=== PATIENT | female | born 1965 | race Asian ===

== ENCOUNTER → 2023-08-03 19:04 | Outpatient (REF) | payer OTHER, SELFPAY | LOC: WDC 19:04 | PROVIDERS: ATTENDING PHYSICIAN Family Medicine | DX: Z12.31 Encounter for screening mammogram for malignant neoplasm of breast (principal) | CPT/HCPCS: 77063; 77067 ==

== ENCOUNTER 2023-09-02 21:13 | Emergency (ER) | payer OTHER, SELFPAY ==
[2023-09-02] VITALS (14 sets, daily range): BP systolic 121–141; BP diastolic 73–87; BMI 26.0
[2023-09-02 21:21] LABS: Glucose - Point of Care 104 mg/dl (70-99)
--- NOTE | 2023-09-02 21:28 | ED.CVA ---
History of Present Illness
General
Chief Complaint: CVA/TIA Symptoms
Source: patient and spouse
Exam Limitations: none
Time Seen by Provider: 09/02/23 21:22
Nursing documentation reviewed up to this point in time: agreed with
Onset of Stroke Symptoms
Onset of symptoms known: Yes
Date of onset of symptoms: 09/02/23
Time of onset of symptoms: 21:00
Travel History
Have you had any contact with someone who has COVID-19?: No
Do you have any symptoms of coronavirus? Fever > 100 degrees, chills, cough, shortness of breath, sore throat, loss of taste or smell, muscle aches, or headache?: No
History of Present Illness
History of Present Illness:
Patient without any significant past medical history, presents to ED secondary to sudden onset of mental status change along with right-sided weakness, approximate 20 minutes prior to arrival. Per spouse, while he was upstairs, he heard a 'thump'
downstairs. When he went downstairs, patient was lying on the ground unable to speak. Patient appeared to not be able to move right side of her body. Upon arrival to ED, patient is awake, but not following commands. Unable to obtain any further
information. Stroke alert activated.
Review of Systems
Review of Systems
Allergies reviewed?: Yes
Unable to obtain full review of systems at this time due to: due to acuity
All Other Systems: Not applicable
Phy Exam
Physical Exam
Physical Exam:
Physical Exam
General: no apparent distress, not acutely ill
Neck: supple. no meningeal signs. normal psoterior pharynx
Heart: s1/s2 regular rate and rhythm, no murmur. equal radial pulses.
Lungs: no acute respiratory distress. clear bilaterally
Abdomen: normal bowel sounds. not tender. no CVAT
Neuro: awake but not following commands. left preferential gaze noted
Skin: no rash
Psychiatric: well kept. interactive and cooperative
Extremities: no edema.
Scores
NIH Stroke Score
Level of Consciousness: 0 - Alert
LOC Questions: 2-Neither correct
LOC Commands: 2-Performs neither correctly
Best Horizontal Gaze: 1-Partial gaze palsy
Visual Mcpherson: 0=Normal, no visual loss
Facial Palsy: 0=Normal, symmetrical
Motor - Right Arm: 4=No movement
Motor - Left Arm: 0=No drift 10 seconds
Motor - Right Le-No movement
Motor - Left Le-No drift 5 seconds
Limb Ataxia: 0-Absent
Sensation: 0-Normal
Best Language: 3-Mute/global aphasia
Dysarthria: UN-Intubated, other
Extinction and Inattention: 0-No abnormality
Total Score:: 16
Course
Orders/Labs/Results
Orders:
Orders
09/02/23 21:21
CT Head W/o Cont STROKE ALERT Urgent
Reason For Exam: aphasia w right sided weakness
CT Head/Neck Ang STROKE ALERT Urgent
Reason For Exam: aphasia w right sided weakness
09/02/23 21:23
Electrocardiogram (*1) Urgent
Reason for Study: TIA/Stroke
EKG- Treatment ONCE
09/02/23 21:28
Complete Blood Count/With Diff Urgent
Comprehensive Metabolic Panel Urgent
Magnesium Urgent
PT/INR [Prothrombin Time] Urgent
PTT Urgent
Troponin I Urgent
09/02/23 21:36
Tenecteplase [Tnkase] 15 mg Syringe [Syringe Non-Pump] 0 ml IV NOW
Abnormal Lab Results
09/02/23 09/02/23
21:19 21:28
Neutrophils % 38.8 L %
(42.2-75.2)
BUN 25 H mg/dl
(7-17)
Glucose 111 H mg/dl
(70-99)
POC Glucose 104 H mg/dl
(70-99)
09/02/23 21:28
09/02/23 21:28
Vital Signs
Initial and Last Documented VS:
Initial Vital Signs
Temp Pulse Resp Pulse Ox
98.5 F 103 16 96
09/02/23 21:17 09/02/23 21:17 09/02/23 21:17 09/02/23 21:17
Last Documented Vital Signs
Temp Pulse Resp BP Pulse Ox
98.5 F 89 20 135/74 96
09/02/23 22:43 09/02/23 22:43 09/02/23 22:43 09/02/23 22:43 09/02/23 22:43
MDM/Problems Addressed
MDM/Problems Addressed:
Patient immediately evaluated upon arrival. Stroke alert activated.
CT head: No acute bleed, but with evidence of M2 thrombus along sylvian fissure.
Risks and benefits of tenecteplase, including bleeding risks, discussed with patient's spouse at bedside. Agrees with recommendation to provide tenecteplase.
Blood pressure stable and TNK provided.
Discussed with neurology, , who recommends patient transfer to tertiary care hospital for potential IAT treatment.
Spoke with Dr. Carolina at [facility] who agreed to accept patient for transfer.
Transfer consent on the chart.
During observation, patient noted to move arm and leg spontaneously.
Patient will be transferred to [facility] via [facility].
Critical care statement: A total of 40 minutes of critical care time was provided for this patient. This includes management of unstable vital signs, evaluation of the patient at bedside, reviewing the patient's pertinent medical records, discussion
with consultants, review of old EKGs and review of pertinent medical records. This time with separate from time utilized to perform the aforementioned documented procedures
*EKG
Interpreted by ED Provider?: Yes
EKG Intrepretation Date: 09/02/23
Heart Rate: 87
Rhythm: sinus
[place]: normal axis
Interval: normal interval
*Critical Care Note
Total Time (30-74mins, 75-104mins- exclusive of procedures): 40 min
ED Attending Note
-
Portions of this chart may have been created with voice recognition software.� Occasional wrong word or��sound alike� substitutions may have occurred due to the inherent limitations of voice recognition software.
Discharge Plan
Departure
Patient Disposition: Acute Care Hospital
Date of Disposition: 09/02/23
Time of Disposition: 22:03
Discharge Problem:
Acute CVA (cerebrovascular accident)
Referrals:
Bernardo He DO [Family Provider] -
Hospital Transfer
Other hospital: [facility]
I certify that the patient requires transfer: Yes
Discussed case with accepting physician:
Reason for transfer: higher level of care, medical necessity, availability of service and specialties available
Interventions
Interventions:
*Risk Screen - Suicide Last Done: 09/02/23 22:18
*General Assessment Last Done: 09/02/23 22:08
*Neglect/Abuse Screening Last Done: 09/02/23 22:18
ED- Fall Risk Assessment Last Done: 09/02/23 22:04
*ED COVID-19 Vaccine History Last Done: 09/02/23 22:07
*Nursing Disposition Last Done: 09/02/23 22:43
ED- Pulmonary Assessment Last Done: 09/02/23 22:19
ED- Neurological Assessment Last Done: 09/02/23 21:24
ED- Cardiac Assessment Last Done: 09/02/23 22:04
Discharge Date and Time
Discharge Date/Time: 09/02/23 22:45
[2023-09-02 21:34] LABS: % Basophils 0.8 % (0-2); % Eosinophils 3.3 % (0-6); % Immature Granulocytes 0.2 % (0-0.5); % Lymphocytes 48.9 % (20.5-51.1); % Neutrophils 38.8 % (42.2-75.2); Absolute Basophils 0.1 10^3/uL (0-0.2); Absolute Eosinophils 0.2 10^3/uL (0-0.7); Absolute Lymphocytes 3.1 10^3/uL (1.2-3.4); Absolute Monocytes 0.5 10^3/uL (0.1-0.6); Absolute Neutrophils 2.5 10^3/uL (1.4-6.5); Hematocrit 37.2 % (37.0-47.0); Hemoglobin 12.9 g/dL (12.0-16.0); Mean Corp Hgb Conc. 34.7 g/dL (33.0-37.0); Mean Corpuscular Hgb 28.8 pg (27.0-31.0); Mean Platelet Volume 9.7 fL (7.4-10.4); Nucleated Red Blood Cells % 0 %; Platelet Count 202 10^3/uL (130-400); Red Blood Cell Count 4.48 10^6/uL (4.20-5.40); Red Cell Dist. Width 12.5 % (11.5-14.5); White Blood Cell Count 6.4 10^3/uL (4.8-10.8)
[2023-09-02 21:45] LABS: INR 1.01; PT 13.1 Sec (11.4-14.6)
[2023-09-02] MEDS: TNKASE 3 MG IV (21:45)
[2023-09-02 21:46] LABS: ALT (SGPT) 17 U/L (0-35); APTT 31.2 Sec (23.4-35.0); AST (SGOT) 29 U/L (14-36); Alkaline Phosphatase 51 U/L (38-126); Blood Urea Nitrogen 25 mg/dl (7-17); Calcium 8.7 mg/dl (8.4-10.2); Carbon Dioxide 26 mmol/L (22-30); Chloride 107 mmol/L (98-107); Glucose 111 mg/dl (70-99); Potassium 3.6 mmol/L (3.5-5.1); Sodium 137 mmol/L (135-145); Total Bilirubin 0.5 mg/dl (0.2-1.3); Total Protein 6.7 g/dl (6.3-8.2); eGFR > 60.00
[2023-09-02 21:57] LABS: Troponin I < 0.012 ng/ml
== END 2023-09-02 22:45 | disposition short-term general hospital (02) ==
LOC: EMR 21:13
PROVIDERS: EMERGENCY PHYSICIAN Emergency Medicine; FAMILY PHYSICIAN Family Medicine
DX: I63.9 Cerebral infarction, unspecified (principal)
CPT/HCPCS: 99291; 96374; 70450; 70496; 70498; 80053; 82962; 83735; 84484; 85025; 85610; 85730; 93005; J3101; Q9967

== ENCOUNTER 2023-10-13 13:48 | Outpatient (RCR) | payer OTHER, SELFPAY | END 2023-10-13 23:59 | disposition home or self-care (01) | LOC: ROT 13:48 | PROVIDERS: ATTENDING PHYSICIAN Family Medicine | DX: I69.320 Aphasia following cerebral infarction (principal); I63.512 Cerebral infarction due to unspecified occlusion or stenosis of left middle cerebral artery; Z73.6 Limitation of activities due to disability | CPT/HCPCS: 92507; 92523; 97167; 97530 ==

== ENCOUNTER 2023-11-14 13:45 | Outpatient (RCR) | payer OTHER, SELFPAY | END 2023-11-14 23:59 | disposition home or self-care (01) | LOC: ROT 13:45 | PROVIDERS: ATTENDING PHYSICIAN Family Medicine | DX: R47.01 Aphasia (principal); I63.512 Cerebral infarction due to unspecified occlusion or stenosis of left middle cerebral artery; I69.320 Aphasia following cerebral infarction; Z73.6 Limitation of activities due to disability | CPT/HCPCS: 92507; 97530; 97535 ==

== ENCOUNTER 2023-12-15 12:57 | Outpatient (RCR) | payer OTHER, SELFPAY | END 2023-12-15 23:59 | disposition home or self-care (01) | LOC: ROT 12:57 | PROVIDERS: ATTENDING PHYSICIAN Family Medicine | DX: I69.320 Aphasia following cerebral infarction (principal); Z73.6 Limitation of activities due to disability | CPT/HCPCS: 92507; 97530; 97537 ==

== ENCOUNTER 2024-01-09 13:51 | Outpatient (RCR) | payer OTHER, SELFPAY | END 2024-01-09 23:59 | disposition home or self-care (01) | LOC: ROT 13:51 | PROVIDERS: ATTENDING PHYSICIAN Family Medicine | DX: I69.320 Aphasia following cerebral infarction (principal); Z73.6 Limitation of activities due to disability; I69.398 Other sequelae of cerebral infarction | CPT/HCPCS: 92507; 97530; 97537 ==

== ENCOUNTER → 2024-08-05 11:27 | Outpatient (REF) | payer OTHER, SELFPAY | LOC: HWRAD 11:27 | PROVIDERS: ATTENDING PHYSICIAN Nurse Practitioner Adult Health; FAMILY PHYSICIAN Family Medicine | DX: Z12.31 Encounter for screening mammogram for malignant neoplasm of breast (principal); I69.90 Unspecified sequelae of unspecified cerebrovascular disease | CPT/HCPCS: 77063; 77067; 93880 ==